=== PATIENT | male | born 1950 | race Caucasian/White ===

== ENCOUNTER 2017-04-23 02:49 | Observation (INO) | payer MEDICARE, OTHER ==
[2017-04-23] MEDS ORDERED: Morphine INJ* 4 MG/ML 1 ML CARPUJECT IV ONE ×2 (03:22→10:06)
[2017-04-23] MEDS ORDERED: Ondansetron INJ* 2 MG/ML VIAL IV ONE ×2 (03:22→10:06)
[2017-04-23] MEDS ORDERED: NS 0.9% 1000 ML* 2,000 ML IV ONE (03:22)
[2017-04-23 03:52] LABS: Urine Nitrite Negative (Negative)
[2017-04-23 03:53] LABS: Urine Bilirubin Negative (Negative); Urine Glucose Negative (Negative)
[2017-04-23 03:58] LABS: Urine Bacteria Absent (Absent)
[2017-04-23 04:15] LABS: Hematocrit 45 % (42-52); Hemoglobin 15.2 g/dl (14.0-18.0); Mean Corpuscular HGB Conc 34 g/dl (31-36); Mean Corpuscular Hemoglobin 31 pg (27-31); Mean Corpuscular Volume 94 fL (80-94); Mean Platelet Volume 8 um3 (7.4-10.4); Red Blood Count 4.84 10^6/ul (4.0-5.4); Red Cell Distribution Width 14 % (10.5-15); White Blood Count 11.5 10^3/ul (3.5-10.8)
[2017-04-23 04:25] LABS: Albumin 4.7 g/dL (3.2-5.2); BUN/Creatinine Ratio 25.9 (8-20); C Reactive Protein 3.5 mg/L (< 5.00); Calcium 9.8 mg/dL (8.6-10.3); EGFR African American 115.6 (>60); EGFR Non-African American 89.9 (>60); Total Bilirubin 0.4 mg/dL (0.2-1.0); Total Protein 8.7 g/dL (6.4-8.9)
[2017-04-23] MEDS ORDERED: HYDROmorphone* 1 MG/ML 1 ML CARPUJECT IV SLOW PU ONE (04:37)
[2017-04-23] MEDS ORDERED: Iohexol 300* (CONTRAST) 10 ML SDV IV ONE (05:27)
[2017-04-23] MEDS ORDERED: Pantoprazole IV* 40 MG IV ONE (06:06)
--- NOTE | 2017-04-23 06:38 | ED ---
Hossein Samuel Rebecca, scribed for Peter Villagran MD on 04/23/17 at 0323 . Abdominal Pain/Male - HPI Summary HPI Summary: Pt is a 67 y/o M who presents to ED c/o abdominal pain since 2229 tonight. Pain is in the epigastric region without any radiation and is currently severe, ranked 8/10. When asked how to describe pain, he reports it was a "really really strong pain." Sx aggravated and alleviated by nothing, unchanged by Tums and antacids. Additionally c/o vomiting. Denies CP, SOB and difficulty urinating. Last BM was today and it was not bloody. Is not on blood thinners. NKDA. - History of Current Complaint Chief Complaint: EDAbdPain Stated Complaint: ABD PAIN Hx Obtained From: Patient Onset/Duration: Lasting Hours, Still Present Severity Currently: Severe Pain Intensity: 8 Pain Scale Used: 0-10 Numeric Aggravating Factor(s): Nothing Alleviating Factor(s): Nothing Associated Signs And Symptoms: Positive: Vomiting. Negative: Chest Pain, Blood in Stool - Allergies/Home Medications Allergies/Adverse Reactions: Allergies Allergy/AdvReac Type Severity Reaction Status Date / Time No Known Allergies Allergy Verified 04/23/17 03:34 PMH/Surg Hx/FS Hx/Imm Hx Endocrine/Hematology History: Denies: Hx Diabetes Cardiovascular History: Denies: Hx Coronary Artery Disease Respiratory History: Denies: Hx Chronic Obstructive Pulmonary Disease (COPD), Other Respiratory Problems/Disorders Infectious Disease History: No Infectious Disease History: Denies: Traveled Outside the [place] in Last 30 Days - Family History Known Family History: Negative: Hypertension - Social History Alcohol Use: Occasionally Substance Use Type: Reports: None Smoking Status (MU): Never Smoked Tobacco Review of Systems Negative: Chest Pain Negative: Shortness Of Breath Positive: Abdominal Pain, Vomiting Positive: other - NEGATIVE: blood in stool and difficulty urinating All Other Systems Reviewed And Are Negative: Yes Physical Exam - Summary Physical Exam Summary: The patient is well-nourished in moderate distress. The skin is warm, diaphoretic and skin color reflects adequate perfusion. HEENT: The head is normocephalic and atraumatic. The pupils are equal and reactive. The conjunctivae are clear and without drainage. Nares are patent and without drainage. Mouth reveals dry mucous membranes and the throat is without erythema and exudate. The external ears are intact. The ear canals are patent and without drainage. The tympanic membranes are intact. Neck is supple with full range of motion and non-tender. Respiratory: Chest is non-tender. Lungs are clear to auscultation and breath sounds are symmetrical and equal. Cardiovascular: Hear is regular rate and rhythm. There is no murmur or rub auscultated. There is no peripheral edema and pulses are symmetrical and equal. Abdomen: The abdomen is soft with marked tenderness in the epigastric area of the abdomen and just above his umbilicus. There are normal bowel sounds heard in all four quadrants and there is no organomegaly palpated and no bruits. There is no rebound and no guarding. Musculoskeletal: There is no CVA tenderness. Extremities are non-tender with full range of motion. There is good capillary refill or 2 seconds. There is no peripheral edema or calf tenderness elicited. Good femoral pulses bilaterally. Neurological: Patient is alert and oriented to person, place and time. The patient has symmetrical motor strength in all four extremities. Psychiatric: The patient has an appropriate affect and does not exhibit any anxiety or depression. Triage Information Reviewed: Yes Vital Signs On Initial Exam: Initial Vitals Temp Pulse Resp BP Pulse Ox 96 F 67 16 162/124 98 04/23/17 02:53 04/23/17 02:53 04/23/17 02:53 04/23/17 02:53 04/23/17 02:53 Vital Signs Reviewed: Yes Diagnostics - Vital Signs Vital Signs Temp Pulse Resp BP Pulse Ox 04/23/17 02:53 96 F 67 16 162/124 98 - Laboratory Lab Results: Lab Results 04/23/17 04/23/17 04/23/17 Range/Units 03:20 03:40 03:40 WBC 11.5 H (3.5-10.8) 10^3/ul RBC 4.84 (4.0-5.4) 10^6/ul Hgb 15.2 (14.0-18.0) g/dl Hct 45 (42-52) % MCV 94 (80-94) fL MCH 31 (27-31) pg MCHC 34 (31-36) g/dl RDW 14 (10.5-15) % Plt Count 337 (150-450) 10^3/ul MPV 8 (7.4-10.4) um3 Neut % (Auto) 80.8 (38-83) % Lymph % (Auto) 12.2 L (25-47) % [place] % (Auto) 6.2 (1-9) % Eos % (Auto) 0.5 (0-6) % Baso % (Auto) 0.3 (0-2) % Absolute Neuts (auto) 9.3 H (1.5-7.7) 10^3/ul Absolute Lymphs (auto) 1.4 (1.0-4.8) 10^3/ul Absolute Monos (auto) 0.7 (0-0.8) 10^3/ul Absolute Eos (auto) 0.1 (0-0.6) 10^3/ul Absolute Basos (auto) 0 (0-0.2) 10^3/ul Absolute Nucleated RBC 0.01 10^3/ul Nucleated RBC % 0.1 Sodium 136 (133-145) mmol/L Potassium 4.0 (3.5-5.0) mmol/L Chloride 102 (101-111) mmol/L Carbon Dioxide 27 (22-32) mmol/L Anion Gap 7 (2-11) mmol/L BUN 22 (6-24) mg/dL Creatinine 0.85 (0.67-1.17) mg/dL Est GFR ( Amer) 115.6 (>60) Est GFR (Non-Af Amer) 89.9 (>60) BUN/Creatinine Ratio 25.9 H (8-20) Glucose 127 H (70-100) mg/dL Lactic Acid (0.5-2.0) mmol/L Calcium 9.8 (8.6-10.3) mg/dL Total Bilirubin 0.40 (0.2-1.0) mg/dL AST 25 (13-39) U/L ALT 24 (7-52) U/L Alkaline Phosphatase 80 (34-104) U/L C-Reactive Protein 3.50 (< 5.00) mg/L Total Protein 8.7 (6.4-8.9) g/dL Albumin 4.7 (3.2-5.2) g/dL Globulin 4.0 (2-4) g/dL Albumin/Globulin Ratio 1.2 (1-3) Amylase 51 (29-103) U/L Lipase 28 (11.0-82.0) U/L Urine Color Straw Urine Appearance Clear Urine pH 5.0 (5-9) Ur Specific [place] 1.035 H (1.010-1.030) Urine Protein 1+(30 mg/dl) H (Negative) Urine Ketones Negative (Negative) Urine Blood Negative (Negative) Urine Nitrate Negative (Negative) Urine Bilirubin Negative (Negative) Urine Urobilinogen Negative (Negative) Ur Leukocyte Esterase Negative (Negative) Urine WBC (Auto) Absent (Absent) Urine RBC (Auto) Trace(0-2/hpf) (Absent) Ur Squamous Epith Cells Present H (Absent) Urine Bacteria Absent (Absent) Urine Glucose Negative (Negative) 04/23/17 Range/Units 03:40 WBC (3.5-10.8) 10^3/ul RBC (4.0-5.4) 10^6/ul Hgb (14.0-18.0) g/dl Hct (42-52) % MCV (80-94) fL MCH (27-31) pg MCHC (31-36) g/dl RDW (10.5-15) % Plt Count (150-450) 10^3/ul MPV (7.4-10.4) um3 Neut % (Auto) (38-83) % Lymph % (Auto) (25-47) % [place] % (Auto) (1-9) % Eos % (Auto) (0-6) % Baso % (Auto) (0-2) % Absolute Neuts (auto) (1.5-7.7) 10^3/ul Absolute Lymphs (auto) (1.0-4.8) 10^3/ul Absolute Monos (auto) (0-0.8) 10^3/ul Absolute Eos (auto) (0-0.6) 10^3/ul Absolute Basos (auto) (0-0.2) 10^3/ul Absolute Nucleated RBC 10^3/ul Nucleated RBC % Sodium (133-145) mmol/L Potassium (3.5-5.0) mmol/L Chloride (101-111) mmol/L Carbon Dioxide (22-32) mmol/L Anion Gap (2-11) mmol/L BUN (6-24) mg/dL Creatinine (0.67-1.17) mg/dL Est GFR ( Amer) (>60) Est GFR (Non-Af Amer) (>60) BUN/Creatinine Ratio (8-20) Glucose (70-100) mg/dL Lactic Acid 0.9 (0.5-2.0) mmol/L Calcium (8.6-10.3) mg/dL Total Bilirubin (0.2-1.0) mg/dL AST (13-39) U/L ALT (7-52) U/L Alkaline Phosphatase (34-104) U/L C-Reactive Protein (< 5.00) mg/L Total Protein (6.4-8.9) g/dL Albumin (3.2-5.2) g/dL Globulin (2-4) g/dL Albumin/Globulin Ratio (1-3) Amylase (29-103) U/L Lipase (11.0-82.0) U/L Urine Color Urine Appearance Urine pH (5-9) Ur Specific [place] (1.010-1.030) Urine Protein (Negative) Urine Ketones (Negative) Urine Blood (Negative) Urine Nitrate (Negative) Urine Bilirubin (Negative) Urine Urobilinogen (Negative) Ur Leukocyte Esterase (Negative) Urine WBC (Auto) (Absent) Urine RBC (Auto) (Absent) Ur Squamous Epith Cells (Absent) Urine Bacteria (Absent) Urine Glucose (Negative) Result Diagrams: 04/23/17 03:40 04/23/17 03:40 Lab Statement: Any lab studies that have been ordered have been reviewed, and results considered in the medical decision making process. - CT CT Abd/Pel CT Interpretation Completed By: Radiologist - Moderate gallbladder distention abnormal gallbladder wall thickening pericholecystic fluid suspicious for acute cholecystitis. If clinically indicated recommend correlation with right upper quadrant abdominal ultrasound. Small hiatal hernia with gastroesophageal reflux. ED physician reviewed this radiology repotr and agrees. - EKG 0321 Cardiac Rate: NL - 53 bpm EKG Rhythm: Sinus Rhythm EKG Interpretation: Old inferior wall [place], Q waves in lead 3 and aVF, no STEMI Re-Evaluation - Re-Evaluation First Eval Re-Evaluation Time: 06:23 Change: Improved Comment: Pt is feeling significantly improved from how he was previously, now only a twinge of pain. Explained CT results to the pt and he agrees to an US. Abdominal Pain Fem Course/Dx - Course Assessment/Plan: Pt is a 67 y/o M who presents to ED c/o abdominal pain since 2229 tonight. Pain is in the epigastric region without any radiation and is currently severe, ranked 8/10. When asked how to describe pain, he reports it was a "really really strong pain." Sx aggravated and alleviated by nothing, unchanged by Tums and antacids. Additionally c/o vomiting. Denies CP, SOB and difficulty urinating. Last BM was today and it was not bloody. Is not on blood thinners. NKDA. CT Abd/Pel reveals "Moderate gallbladder distention abnormal gallbladder wall thickening pericholecystic fluid suspicious for acute cholecystitis." In the ED course, pt received Dilaudid, Zofran, Protonix, Morphine and fluids which improved sx. Discussed care of pt with Dr. Costello who recommends an ultrasound. Pt will be signed out, pending disposition, awaiting Gallbladder US. Elevated BP noted and advised to f/u. - Diagnoses Differential Diagnosis/HQI/PQRI: AMI, Diverticulitis, Gall Bladder Disease, Peptic Ulcer Disease, Urinary Tract Infection Provider Diagnoses: Abdominal pain, Gallbladder disease - Provider Notifications Discussed Care Of Patient With: Deana Costello Time Discussed With Above Provider: 06:23 Instructed by Provider To: Other - Discussed CT reuslts and she recommends an ultrasound. Discharge - Discharge Plan Condition: Stable Disposition: OTHER Discharge Disposition Comment: Pt will be signed out, pending disposition, awaiting US Referrals: Tracy Jones MD [Primary Care Provider] - The documentation as recorded by the Hossein spears Rebecca accurately reflects the service I personally performed and the decisions made by me, Peter Villagran MD.
--- NOTE | 2017-04-23 08:49 | RAD ---
Indication: RIGHT upper quadrant pain. Gallbladder distention, mural thickening, and pericholecystic fluid on CT of the same date. Comparison: April 23, 2017 CT abdomen pelvis. Technique: RIGHT upper quadrant ultrasound. Report: Appropriate direction flow documented in the portal and hepatic veins. 16.6 cm liver is increased in echogenicity. Negative for focal hepatic lesions. Negative for intrahepatic biliary dilatation. The common bile duct could not be visualized due to bowel gas limiting acoustic window. Adequately distended gallbladder is remarkable for cholelithiasis including a 1 cm stone at the gallbladder neck which appears nonmobile. Mildly thickened 3.6 mm gallbladder wall. No pericholecystic fluid visualized. Negative for sonographic Jauregui's sign. The pancreas is obscured secondary to bowel gas limiting assessment. Negative for ascites. 11.8 cm RIGHT kidney is unremarkable. IMPRESSION: 1. Fatty infiltration of the liver. 2. Cholelithiasis and mild gallbladder wall thickening. Consider potential early acute cholecystitis.
--- NOTE | 2017-04-23 09:23 | RAD ---
INDICATION: Epigastric abdominal pain, vomiting, gallbladder disease. COMPARISON: RIGHT upper quadrant ultrasound of the same date remarkable for fatty infiltration of the liver, cholelithiasis and mild gallbladder wall thickening. TECHNIQUE: Multidetector CT images were obtained from the lung bases to the ischial tuberosities with 100 mL Omnipaque 300 IV and oral contrast. Multiplanar reformation. REPORT: Unremarkable visualized inferior thorax. Mild decreased density of the liver consistent with fatty infiltration with focal sparing at the gallbladder fossa. No suspicious focal hepatic lesions or biliary dilatation. Mildly distended gallbladder with mild wall thickening and suggestion of mild pericholecystic inflammatory change. Trace pericholecystic fluid visualized. No CT conspicuous gallstones. Unremarkable pancreas and spleen. Negative for CT abnormality of the upper GI, small bowel, infra cecal appendix, colon. Negative for ascites, free air, hernias. Normal adrenal glands. Unremarkable kidneys with symmetric nephrograms and pyelograms. Unremarkable nondilated ureters and partially distended urinary bladder as well as the prostate and seminal vesicles. Negative for thoracic lymphadenopathy. Mild atherosclerotic plaque of normal diameter abdominal aorta and iliac arteries. Physiologic distention of the IVC. Polyarticular degenerative arthropathy. No suspicious focal osseous lesions evident. IMPRESSION: 1. The constellation of CT and ultrasound findings is concerning for early acute cholecystitis. 2. Fatty infiltration of the liver. 3. Normal appendix documented. 4. Negative for obstructive uropathy.
[2017-04-23] MEDS ORDERED: NS 0.9% 1000 ML* 1,000 ML IV SCH (10:15)
--- NOTE | 2017-04-23 10:51 | HP ---
H&P (Free Text) History and Physical: Surgery H & P Asked by Dr. Holland to evaluate a pt. with abd. pain and sono and CT suggesting cholecystitis. Mr. Agrawal is a 67 y.o. male who reports that after a steak dinner out last night he developed stabbing upper abdominal pain that did not get better after several hours. He has had similar episodes, one about 2 wks ago and one about a year ago, but the others weren't quite as bad. The more recent of the two previous episodes prompted him to seek medical attention and he actually had a sono of the GB last Monday. It was reportedly "okay". He had several bouts of dry heaves with this episode. He is not aware of fever and has had no diarrhea or constipation. He denies changes in the color of the urine or stool. PMHx: denies Meds: glucosamine chondroitin, sialis NKDA SH: neg. tob, (quit age 23), occ. EtOH, neg. IVDA FH: mother CHF, sister lung ca, father of old age PE: general: WDWN, somewhat overweight male in NAD Vital Signs 04/23/17 04/23/17 04/23/17 02:53 03:48 04:47 Temperature 96 F Pulse Rate 67 Respiratory 16 16 16 Rate Blood Pressure 162/124 (mmHg) O2 Sat by Pulse 98 Oximetry 04/23/17 04/23/17 04/23/17 04:52 05:00 05:30 Temperature Pulse Rate 65 64 65 Respiratory Rate Blood Pressure 162/79 169/82 (mmHg) O2 Sat by Pulse 97 91 95 Oximetry 04/23/17 04/23/17 04/23/17 06:09 06:11 06:30 Temperature Pulse Rate 66 63 Respiratory Rate Blood Pressure 164/75 (mmHg) O2 Sat by Pulse 95 98 Oximetry 04/23/17 04/23/17 04/23/17 07:00 07:30 08:07 Temperature Pulse Rate 66 69 70 Respiratory Rate Blood Pressure 165/90 151/65 (mmHg) O2 Sat by Pulse 95 95 97 Oximetry 04/23/17 04/23/17 04/23/17 08:28 08:30 09:00 Temperature Pulse Rate 63 62 68 Respiratory Rate Blood Pressure 150/64 131/55 155/77 (mmHg) O2 Sat by Pulse 96 96 95 Oximetry 04/23/17 04/23/17 04/23/17 09:30 10:00 10:13 Temperature Pulse Rate 58 58 Respiratory 17 Rate Blood Pressure 144/59 140/63 (mmHg) O2 Sat by Pulse 95 96 Oximetry HEENT: neg. cervical or supraclavicular adenopathy, moist oral mucosa, verrucous lesion on mid tongue, neg. scleral icterus. lungs: clear to ausc. heart: reg. without murmurs. abd: good BS, soft, tender in epigastrium without guarding or rebound. No masses felt, but some fullness in epigastrium. ext: neg cyanosis, edema Laboratory Results - last 24 hr 04/23/17 04/23/17 04/23/17 03:20 03:40 03:40 WBC 11.5 H RBC 4.84 Hgb 15.2 Hct 45 MCV 94 MCH 31 MCHC 34 RDW 14 Plt Count 337 MPV 8 Neut % (Auto) 80.8 Lymph % (Auto) 12.2 L [place] % (Auto) 6.2 Eos % (Auto) 0.5 Baso % (Auto) 0.3 Absolute Neuts (auto) 9.3 H Absolute Lymphs (auto) 1.4 Absolute Monos (auto) 0.7 Absolute Eos (auto) 0.1 Absolute Basos (auto) 0 Absolute Nucleated RBC 0.01 Nucleated RBC % 0.1 Sodium 136 Potassium 4.0 Chloride 102 Carbon Dioxide 27 Anion Gap 7 BUN 22 Creatinine 0.85 Est GFR ( Amer) 115.6 Est GFR (Non-Af Amer) 89.9 BUN/Creatinine Ratio 25.9 H Glucose 127 H Lactic Acid Calcium 9.8 Total Bilirubin 0.40 AST 25 ALT 24 Alkaline Phosphatase 80 C-Reactive Protein 3.50 Total Protein 8.7 Albumin 4.7 Globulin 4.0 Albumin/Globulin Ratio 1.2 Amylase 51 Lipase 28 Urine Color Straw Urine Appearance Clear Urine pH 5.0 Ur Specific [place] 1.035 H Urine Protein 1+(30 mg/dl) H Urine Ketones Negative Urine Blood Negative Urine Nitrate Negative Urine Bilirubin Negative Urine Urobilinogen Negative Ur Leukocyte Esterase Negative Urine WBC (Auto) Absent Urine RBC (Auto) Trace(0-2/hpf) Ur Squamous Epith Cells Present H Urine Bacteria Absent Urine Glucose Negative 04/23/17 03:40 WBC RBC Hgb Hct MCV MCH MCHC RDW Plt Count MPV Neut % (Auto) Lymph % (Auto) [place] % (Auto) Eos % (Auto) Baso % (Auto) Absolute Neuts (auto) Absolute Lymphs (auto) Absolute Monos (auto) Absolute Eos (auto) Absolute Basos (auto) Absolute Nucleated RBC Nucleated RBC % Sodium Potassium Chloride Carbon Dioxide Anion Gap BUN Creatinine Est GFR ( Amer) Est GFR (Non-Af Amer) BUN/Creatinine Ratio Glucose Lactic Acid 0.9 Calcium Total Bilirubin AST ALT Alkaline Phosphatase C-Reactive Protein Total Protein Albumin Globulin Albumin/Globulin Ratio Amylase Lipase Urine Color Urine Appearance Urine pH Ur Specific [place] Urine Protein Urine Ketones Urine Blood Urine Nitrate Urine Bilirubin Urine Urobilinogen Ur Leukocyte Esterase Urine WBC (Auto) Urine RBC (Auto) Ur Squamous Epith Cells Urine Bacteria Urine Glucose A/P: Probable cholecystitis accounting for signs and symptoms. Will admit for iVAbx and plan OR in AM if possible. CLFoster
[2017-04-23] MEDS ORDERED: Morphine INJ* 2 MG/ML 1 ML CARPUJECT IV PRN ×2 (10:57→15:33)
[2017-04-23] MEDS ORDERED: Ondansetron INJ* 2 MG/ML VIAL IV PRN (10:59)
[2017-04-23] MEDS ORDERED: Zosyn per Pharmacy* NOTE FOLLOW UP SCH (11:00)
--- NOTE | 2017-04-23 11:01 | ED ---
Marcie Samuel Edward, scribed for Dmitri Holland MD on 04/23/17 at 0828 . Progress - Progress Note Progress Note: Pt signed out by Dr. Villagran at shift change. - Results/Orders Results/Orders: GALLBLADDER US - 1. Fatty infiltration of the liver. 2. Cholelithiasis and mild gallbladder wall thickening. Consider potential early acute cholecystitis. ABD/PEL CT - 1. The constellation of CT and ultrasound findings is concerning for early acute cholecystitis. 2. Fatty infiltration of the liver. 3. Normal appendix documented. 4. Negative for obstructive uropathy. - Consult/PCP Time Called: 10:00 Consult/PCP: Dr. Deana Costello (surgery) Consult Reason/Comments: Dr. Costello will come to the ED to see the patient Re-Evaluation - Re-Evaluation First Eval Re-Evaluation Time: 06:23 Change: Improved Comment: Pt is feeling significantly improved from how he was previously, now only a twinge of pain. Explained CT results to the pt and he agrees to an US. Course/Dx - Course Course Of Treatment: DISCUSSED RESULTS WITH PATIENT/. DR COSTELLO SAW PATIENT IN ED. ADMIT SURGERY. - Diagnoses Provider Diagnoses: Abdominal pain, Gallbladder disease - Provider Notifications Time Discussed With Above Provider: 06:23 Instructed by Provider To: Other - Discussed CT reuslts and she recommends an ultrasound. The documentation as recorded by the itzibMarcie prince Edward accurately reflects the service I personally performed and the decisions made by me, Dmitri Holland MD.
[2017-04-23] MEDS: Famotidine IV* 10 MG/ML 2 ML (20 mg) IV SCH ×2 (12:29→20:20)
[2017-04-23] MEDS: D5W 1/2 NS KCl 20 Meq 1000 ML* 1,000 ML IV SCH ×2 (12:29→20:19)
[2017-04-23] MEDS: ZOSYN 3.375 GM Q8H per EXTENDED INFUSION IVPB SCH ×2 (16:40)
[2017-04-24] MEDS: ZOSYN 3.375 GM Q8H per EXTENDED INFUSION IVPB SCH ×6 (02:52→18:33)
[2017-04-24] MEDS: D5W 1/2 NS KCl 20 Meq 1000 ML* 1,000 ML IV SCH ×2 (04:26→19:30)
[2017-04-24] MEDS: Famotidine IV* 10 MG/ML 2 ML (20 mg) IV SCH ×3 (08:46→21:38)
[2017-04-24] MEDS ORDERED: Morphine INJ* 4 MG/ML 1 ML CARPUJECT IV PRN ×2 (10:15→18:25)
[2017-04-24] MEDS ORDERED: Perflutren Lipid Microsphere* 3 ML VIAL ONE (11:01)
--- NOTE | 2017-04-24 12:05 | ECHO ---
Patient: NEISHA CRUZ [facility] Rec#: [id number] : 1950 Date: 04/24/2017 Age: 67y Height: 167.6 cm / 66.0 in Weight: 86.2 kg / 190.0 lbs Sex: M BSA: 2 Room#: 340 Admit Date#: 04/23/2017 Type: Inpatient Referring: Tracy Jones MD Reading: Omar Hodgson MD Interactive Media Specialist: Sonia Duval RN RDCS Transthoracic Echocardiogram Indication: Abnormal EKG BP: 145/84 HR: 62 Rhythm: NSR Findings History: Remote smoking history, abnormal EKG Technical Comments: The study is technically limited due to poor apical windows. The study is technically limited due to patient body habitus. Completed at 1155. Left Ventricle: The left ventricular chamber size is normal. There is increased basal septal hypertrophy noted without evidence of an increased gradient across the left ventricular outflow tract. The septal knuckle measures 1.4cm. Global left ventricular wall motion and contractility are within normal limits. Left ventricular systolic function is at the lower limits of normal. The estimated ejection fraction is 50-55%. The left ventricular diastolic filling pattern is consistent with pseudonormalization. Left Atrium: The left atrium is mildly dilated. Right Ventricle: The right ventricular cavity size is normal. The right ventricular global systolic function is low normal. Right Atrium: The right atrium is mildly dilated. Aortic Valve: There is evidence of aortic sclerosis without stenosis. There is no evidence of aortic regurgitation. Mitral Valve: The mitral valve leaflets are mildly thickened. There is a trace of mitral regurgitation. There is no evidence of mitral stenosis. Tricuspid Valve: The tricuspid valve leaflets are normal. There is trace tricuspid regurgitation. Unable to estimate the right ventricular systolic pressure. Pulmonic Valve: The pulmonic valve structure is not well visualized. There is trace to mild pulmonic regurgitation. There is no pulmonic stenosis. Pericardium: There is no significant pericardial effusion. A pericardial fat pad is visualized. Aorta: There is no dilatation of the ascending aorta. There is no dilatation of the aortic arch. There is mild dilatation of the aortic root. Pulmonary Artery: The main pulmonary artery is not well visualized. Venous: The inferior vena cava appears normal in size. There is an approximate 50% respiratory change in the inferior vena cava dimension. Contrast: Definity was used to optimize study. A total of 4 ml of Definity was given IV to enhance endocardial border definition. Summary: There was not any prior study for comparison. Conclusions There is increased basal septal hypertrophy noted without evidence of an increased gradient across the left ventricular outflow tract. The septal knuckle measures 1.4cm. Global left ventricular wall motion and contractility are within normal limits. Left ventricular systolic function is at the lower limits of normal. The estimated ejection fraction is 50-55%. The right ventricular global systolic function is low normal. There is evidence of aortic sclerosis without stenosis. There is a trace of mitral regurgitation. There is trace tricuspid regurgitation. Unable to estimate the right ventricular systolic pressure. There is no significant pericardial effusion. Measurements Name Value Normal Range RVDdMajor (2D) 4.4 cm (2.2 - 4.4) RAd ISD 4CH 5.5 cm (3.4 - 4.9) RA (A4C)W 4.3 cm (2.9 - 4.6) IVSd (2D) 1 cm (0.6 - 1) LVPWd (2D) 1 cm (0.6 - 1) LVIDd (2D) 3.9 cm (3.6 - 5.4) LVIDs (2D) 2.6 cm - LV FS (2D) 33 % (25 - 45) Aortic Annulus 2.4 cm (1.4 - 2.6) Ao root diameter (2D) 3.6 cm (2.1 - 3.5) Ascending Ao 3.2 cm (2.1 - 3.4) Aortic arch 2.8 cm (1.8 - 3.4) LA dimension (AP) 2D 3.5 cm (2.3 - 3.8) LAd ISD 4CH 5.7 cm (2.9 - 5.3) LA ISD 4CH W 4.2 cm (2.5 - 4.5) Name Value Normal Range LA ESV SP 4CH (A/L) 55 ml - LA ESV SP 2CH (A/L) 41 ml - LA ESV BP (A/L) 49 ml - LA ESV BP (A/L) index 25 ml/m2 - LA ESV SP 4CH (MOD) 52 ml - LA ESV SP 2CH (MOD) 39 ml - Name Value Normal Range MV E-wave Vmax 0.69 m/sec - MV deceleration time 260 msec - MV A-wave Vmax 0.8 m/sec - MV E:A ratio 0.87 ratio - LV septal e' Vmax 0.07 m/sec - LV lateral e' Vmax 0.11 m/sec - LV E:e' septal ratio 9.9 ratio - LV E:e' lateral ratio 6.3 ratio - Name Value Normal Range AV Vmax 1.6 m/sec - AV VTI 31.6 cm - AV peak gradient 10 mmHg - AV mean gradient 5 mmHg - LVOT Vmax 1.1 m/sec - LVOT VTI 22.6 cm - LVOT peak gradient 4.6 mmHg - LVOT mean gradient 2.1 mmHg - SARINA Vmax 1.5 m/sec - Name Value Normal Range IVC diameter 1.5 cm - Name Value Normal Range PV Vmax 0.72 m/sec -
[2017-04-24] MEDS ORDERED: Bupivacaine 0.25% SDV* 30 ML ONE (15:03)
[2017-04-24] MEDS ORDERED: Succinylcholine* 20 MG/ML 10 ML VIAL ONE ×2 (15:27→16:48)
[2017-04-24] MEDS ORDERED: Lidocaine 1% INJ* 10 MG/ML 30 ML SDV ONE (15:27)
[2017-04-24] MEDS ORDERED: Rocuronium* 10 MG/ML VIAL ONE (15:27)
[2017-04-24] MEDS ORDERED: KETAMINE HCL* 50 MG/ML 10 ML VIAL ONE (15:30)
[2017-04-24] MEDS ORDERED: fentaNYL* 50 MCG/ML 2 ML VIAL (100 MCG VIAL) ONE ×2 (15:30→17:53)
[2017-04-24] MEDS ORDERED: Midazolam* 1 MG/ML 2 ML VIAL (2 MG) ONE (15:31)
[2017-04-24] MEDS ORDERED: Ondansetron INJ* 2 MG/ML VIAL ONE (16:48)
[2017-04-24] MEDS ORDERED: Ketorolac INJ* 30 MG/ML 1 ML VIAL ONE (16:48)
[2017-04-24] MEDS ORDERED: Dexamethasone IV* 4 MG/ML 1 ML (4 MG) ONE (16:48)
[2017-04-24] MEDS ORDERED: DiMENhydriNATE IV* 50 MG/ML VIAL IV PUSH PRN (17:06)
[2017-04-24] MEDS ORDERED: Propofol* 10 MG/ML 20 ML BTL IV PUSH ONE (17:19)
[2017-04-24] MEDS ORDERED: HYDROmorphone* 1 MG/ML 1 ML CARPUJECT ONE (17:53)
[2017-04-24] MEDS: HYDROmorphone* 1 MG/ML 1 ML CARPUJECT IV PRN ×2 (17:54→18:09)
[2017-04-24] MEDS: fentaNYL* 50 MCG/ML 2 ML VIAL (100 MCG VIAL) IV PRN ×2 (18:00→19:13)
--- NOTE | 2017-04-24 18:18 | PN ---
Progress Note - Progress Note Date of Service: 04/24/17 Note: Brief Operative Note: Preop Dx: acute calculous cholecystitis Postop Dx: acute on chronic cholecystitis Procedure: Laparoscopic cholecystectomy Anesthesia: GET Surgeon: Javed Asst: FAITH Bryson; ISADORA Marques EBL: 50 ml Fluids: 1 L LR Drains: 1 DAVID Specimen: gallbladder Findings: dictated
[2017-04-24] MEDS ORDERED: Acetaminophen TAB* 325 MG PO PRN (18:26)
[2017-04-24] MEDS: HYDROcodone/ACETAMIN 5-325 MG* 1 TAB PO PRN (22:02)
[2017-04-25] MEDS: ZOSYN 3.375 GM Q8H per EXTENDED INFUSION IVPB SCH ×6 (01:34→17:27)
[2017-04-25] MEDS: HYDROcodone/ACETAMIN 5-325 MG* 1 TAB PO PRN ×4 (02:00→21:55)
[2017-04-25] MEDS: D5W 1/2 NS KCl 20 Meq 1000 ML* 1,000 ML IV SCH ×2 (05:37→14:31)
[2017-04-25] MEDS: Famotidine IV* 10 MG/ML 2 ML (20 mg) IV SCH ×2 (07:20→21:55)
--- NOTE | 2017-04-25 13:30 | OP ---
CC: Dr. Tracy Jones * DATE OF OPERATION: 04/24/17 - ROOM #340 DATE OF : 50 SURGEON: Joey Burt MD. ALTERNATIVE MEDICINE PRACTITIONER: FAITH Beth ANESTHESIOLOGIST: Dr. Robins. ANESTHESIA: General with local. PRE-OP DIAGNOSIS: Acute calculus cholecystitis. POST-OP DIAGNOSIS: Acute calculus cholecystitis. OPERATIVE PROCEDURE: Laparoscopic cholecystectomy. ESTIMATED BLOOD LOSS: Minimal. SPECIMENS: Gallbladder, with contained gallstones. WOUND CLASSIFICATION: III. COMPLICATIONS: None. DRAINS: A #10 DAVID drain in the right upper quadrant. BRIEF HISTORY: Mr. Eliazar Agrawal is a healthy, 67-year-old gentleman, who has had recent episodes of epigastric discomfort quite persistent that came on suddenly and intermittently. He presented to the emergency room and underwent both an ultrasound and a CT scan of the abdomen and pelvis, which showed gallstones as well as some minimal gall-bladder wall thickening consistent with acute calculus cholecystitis. He was admitted to the surgical service with medical consultation and after his workup has been completed, he has been cleared medically for surgery for a laparoscopic cholecystectomy as it is felt on physical exam, he has epigastric right upper quadrant abdominal pain, all consistent with acute calculus cholecystitis. The procedure was discussed with the patient and the risks include, but not limited to bleeding, infection, intraabdominal abscess formation, open procedure common bile duct injury, injury to peritoneal and retroperitoneal structures, the risk of general anesthesia and deep vein thrombosis were all explained. DESCRIPTION OF PROCEDURE: Written informed consent was obtained, the abdomen was marked with indelible ink and the patient had been receiving antibiotics on the floor. He was taken to the operating room and placed in the supine position. Sequential compression devices and a warming blanket were applied. General anesthesia was administered. The abdomen was prepped and draped in the usual sterile fashion. Marcaine 0.5% was infiltrated just above the umbilicus, a transverse incision was made, carried down through the midline fascia. The peritoneal cavity was entered under direct vision and a 11-mm epigastric port was placed. The abdomen was insufflated to 15 mmHg. Under direct vision, an 11-mm epigastric port was placed and two 5-mm ports were placed on the right side of the abdominal wall. The liver appear to be normal. There was omentum in right upper quadrant that was adherent densely to the gallbladder consistent with acute calculus cholecystitis. I was able to bluntly remove the omentum and expose a distended inflamed gallbladder, which was unable to be grasped with a grasper. The gallbladder was decompressed of about 30 cc of bile, we were able to grab this and elevate it up over the liver bed. There was some thickened and chronically inflamed fat adhered to the gallbladder, I was able to take this down from top to bottom to expose the underlying gallbladder. The infundibulum was identified and was able to take the thickened peritoneum along the medial and lateral aspects of the gallbladder to identify the cystic duct and arteries as it entered the gallbladder. I took a significant portion of the inferior part of the gallbladder off the the liver bed using the critical view technique to assure myself of these structures. The cystic duct did not appear to be dilated and was triply clipped and divided. The cystic artery was doubly clipped and divided in the usual fashion and the gallbladder was removed from the liver bed using cautery. It was quite adherent, there was some chronic and acute inflammatory change making this part of the dissection somewhat challenging, but all consistent with the diagnosis. The gallbladder was placed in the Endo Catch bag and brought out through the umbilical incision. The liver bed was then irrigated. There had been some bile spilled, quite a bit of fluid, thus a #10 DAVID drain was placed in the Morison's pouch and brought out through the lateral right abdominal stab wound. We irrigated until clear, hemostasis was assured. There were no bile leaks noted. All ports were removed under direct vision of the camera. The umbilical fascia was closed with interrupted 0 Polysorb suture. The skin at all three incisions was approximated with subcuticular 4-0 Polysorb suture. Steri-Strips were applied. The patient tolerated the procedure well and was taken to the recovery room in stable condition. [id number]/[facility] #: [id number] LIBBY
--- NOTE | 2017-04-25 16:58 | PN ---
Progress Note - Progress Note Date of Service: 04/25/17 SOAP: Subjective: Patient seen at 0830 this morning. He had a comfortable night. He did have some nausea after taking some percocet on an empty stomach. Pain is minimal and he is getting OOB Objective: Temp Pulse Resp BP Pulse Ox 98.2 F 55 18 139/71 98 04/25/17 15:32 04/25/17 15:32 04/25/17 15:32 04/25/17 15:32 04/25/17 16:00 Intake & Output 04/23/17 04/24/17 04/25/17 04/26/17 06:59 06:59 06:59 06:59 Intake Total 1000 5056 2301 1507 Output Total 3075 1990 1565 Balance 1000 1981 311 -58 Weight 190 lb 190 lb Intake: IV Fluids 1000 3497 2021 850 D5W 1/2 NS 20 meq KCL 1294 1021 850 lr 1000 IVPB 0 127 ABX - ZOSYN 127 D5W 1/2 NS 20 meq KCL 0 Medicated IV 94 55 Zosyn 94 55 Oral 1465 225 530 Output: DAVID #1 65 40 Urine 3075 1925 1425 Emesis 100 Other: Estimated Void Medium Date of Last Bowel 04/25/17 Movement # Bowel Movements 0 0 1 Estimated Stool Amount Medium # Voids 2 PEX: Comfortable Lungs are clear Abd is soft and nondistended. BOwel sounds are present. DAVID in place with serosanguinous drainage in bulb Assessment: POD#1 s/p lap choly for acute calculous cholecystitis Plan: Advance diet and increase activity D/C later today or tomorrow Will d/c drain on discharge.
[2017-04-26] MEDS: D5W 1/2 NS KCl 20 Meq 1000 ML* 1,000 ML IV SCH (00:24)
[2017-04-26] MEDS: ZOSYN 3.375 GM Q8H per EXTENDED INFUSION IVPB SCH ×2 (02:00)
[2017-04-26 08:00] VITALS: BP 150/71
[2017-04-26] MEDS: Famotidine IV* 10 MG/ML 2 ML (20 mg) IV SCH (08:02)
[2017-04-26] MEDS: HYDROcodone/ACETAMIN 5-325 MG* 1 TAB PO PRN (09:27)
--- NOTE | 2017-04-26 12:12 | PN ---
Progress Note - Progress Note Date of Service: 04/26/17 SOAP: Subjective: Doing well today-minimal pain and he is tolerating solid food He is ready to go home Objective: Temp Pulse Resp BP Pulse Ox 98.4 F 57 16 150/71 97 04/26/17 07:39 04/26/17 07:39 04/26/17 09:27 04/26/17 07:39 04/26/17 08:00 Intake & Output 04/24/17 04/25/17 04/26/17 04/27/17 06:59 06:59 06:59 06:59 Intake Total 5056 2301 4100 895 Output Total 3075 1990 2890 400 Balance 4223 242 5943 495 Weight 190 lb Intake: IV Fluids 3497 2021 2053 895 ABX - ZOSYN 220 D5W 1/2 NS 20 meq KCL 1294 1021 1833 895 lr 1000 IVPB 0 127 ABX - ZOSYN 127 D5W 1/2 NS 20 meq KCL 0 Medicated IV 94 55 Zosyn 94 55 Oral 9830 133 7289 0 Output: DAVID #1 65 90 Urine 3075 1925 2700 400 Emesis 100 Other: Estimated Void Medium Date of Last Bowel 04/25/17 Movement # Bowel Movements 0 0 0 Estimated Stool Amount Medium # Voids 2 PEX: Comfortable Lungs are clear Abd is soft and non-distended. Incisions are clean and dry. DAVID with serous fluid in bulb. Bowel sounds are present. Assessment: POD # 2 s/p lap choly for acute calculous cholecystitis Plan: D/C drain-done D/C home Instructions and follow up appointment made No antibiotics needed.
== END 2017-04-26 10:00 | disposition home or self-care (01) ==
LOC: ED 02:49 → SSU 10:56 → OBSVTOIN 04-24 11:20 → INTOOBSV 04-24 11:20
PROVIDERS: ADMIT Surgery; ATTEND Surgery
DX: K80.12 Calculus of gallbladder with acute and chronic cholecystitis without obstruction (principal); R10.13 Epigastric pain; R11.10 Vomiting, unspecified; Z87.891 Personal history of nicotine dependence; R94.31 Abnormal electrocardiogram [ECG] [EKG]; I37.1 Nonrheumatic pulmonary valve insufficiency; I70.0 Atherosclerosis of aorta; I51.7 Cardiomegaly
CPT/HCPCS: 36415; 74177; 76705; 80053; 81003; 81015; 82150; 83605; 83690; 85025; 86140; 88304; 93005; 93306; 96365; 96366; 96375; 96376; 99283; C8929; G0378; J0330; J1100; J1170; J1885; J2001; J2250; J2270; J2405; J2543; J2704; J3010; Q9967